=== PATIENT | male | born 1950 | race Caucasian/White ===

== ENCOUNTER 2016-11-04 20:30 | Outpatient (CLI) | payer MEDICARE, OTHER ==
[~2016-11-04 20:30] MED LIST: AMLO5TAB2 PO; BNZ20T PO; CYCL10TA9 PO; HYDR-3583 PO; IBP800T PO; MAG355OR55 PO; METO100T5 PO; OXYC-465 PO; SULF1TAB38 PO
== END 2016-11-05 06:45 | disposition home or self-care (01) ==
LOC: SLEEP 20:30
PROVIDERS: ATTEND Nurse Practitioner
DX: G47.10 Hypersomnia, unspecified (principal); R06.81 Apnea, not elsewhere classified; R06.83 Snoring; I10 Essential (primary) hypertension
CPT/HCPCS: 95810

== ENCOUNTER 2018-03-27 05:41 | Outpatient (CLI) | payer MEDICARE, OTHER ==
[~2018-03-27] VITALS: Ht 185.4 cm; Wt 127.0 kg
[2018-03-27] MEDS ORDERED: AMLO10TA6 PO (14:49)
[2018-03-27] MEDS ORDERED: METO-395 PO (14:49)
[2018-03-27] MEDS ORDERED: BENA20TA7 PO (14:49)
[2018-03-27] MEDS ORDERED: HYDR12.56 PO (14:49)
== END 2018-03-27 14:50 | disposition home or self-care (01) ==
LOC: PREOP 05:41
PROVIDERS: ATTEND Surgery
DX: Z01.818 Encounter for other preprocedural examination (principal)

== ENCOUNTER 2018-04-03 07:42 | Day surgery (SDC) | payer MEDICARE, OTHER ==
[~2018-04-03] VITALS: Ht 185.4 cm; Wt 127.0 kg
[~2018-04-03 07:42] MED LIST changes: +AMLO10TA6 PO; +BENA20TA7 PO; +HYDR12.56 PO; +METO-395 PO
[2018-04-03 08:00] VITALS: BP 142/71
[2018-04-03] MEDS ORDERED: LACTATED RINGERS 1,000 ML IV PRN (08:00)
[2018-04-03] MEDS ORDERED: ceFAZolin 2 GM IV Premixed 50 ML IV ONE (08:00)
[2018-04-03] MEDS ORDERED: LACTATED RINGERS 1,000 ML IV ONE (08:09)
--- OUTSIDE RECORDS SUMMARY | 2018-04-03 08:38 | XMS REPORT | Continuity of Care Document ---
Author Author [facility] Organization [facility] Address Unknown Phone Unavailable Allergies Active Description Code Type Severity Reaction Onset Reported/Identified Relationship to Patient Clinical Status Yes No Known Drug Allergies [id number] Drug Allergy Unknown N/A 05/31/2010 Medications There is no data. Problems Date Dx Coded Attending Type Code Diagnosis Diagnosed By 11/28/2012 TRAVON BARNES DO Ot 721.0 CERVICAL SPONDYLOSIS 11/28/2012 TRAVON BARNES DO Ot 722.52 LUMB/LUMBOSAC DISC DEGEN 12/27/2012 JUAN BAKER MD Ot 724.2 LUMBAGO 12/27/2012 JUAN BAKER MD Ot V57.1 PHYSICAL THERAPY NEC 12/13/2013 JUAN BAKER MD Ot 278.00 OBESITY, NOS 12/13/2013 JUAN BAKER MD Ot 721.3 LUMBOSACRAL SPONDYLOSIS 12/13/2013 JUAN BAKER MD Ot 722.52 LUMB/LUMBOSAC DISC DEGEN 12/13/2013 JUAN BAKER MD Ot V58.69 OTH MED,LT,CURRENT USE 12/13/2013 JUAN BAKER MD Ot V85.36 BODY MASS INDEX 36.0-36.9, ADULT 12/25/2013 JUAN BAKER MD Ot 724.2 LUMBAGO 12/25/2013 JUAN BAKER MD Ot V57.1 PHYSICAL THERAPY NEC 01/18/2016 Ot 722.10 LUMBAR DISC DISPLACEMENT 01/18/2016 Ot 722.52 LUMB/ LUMBOSAC DISC DEGEN 01/18/2016 JUAN BAKER MD Ot 715.36 LOC OSTEOARTH NOS-L/LEG 01/18/2016 JUAN BAKER MD Ot 719.46 JOINT PAIN-L/LEG 01/18/2016 JUAN BAKER MD Ot 278.00 OBESITY, NOS 01/18/2016 JUAN BAKER MD Ot 721.3 LUMBOSACRAL SPONDYLOSIS 01/18/2016 JUAN BAKER MD, Ot 722.52 LUMB/LUMBOSAC DISC DEGEN 01/18/2016 JUAN BAKER MD, Ot V58.69 OTH MED,LT,CURRENT USE 01/18/2016 JUAN BAKER MD Ot V85.36 BODY MASS INDEX 36.0-36.9, ADULT 01/18/2016 JUAN BAKER MD Ot M47.816 SPONDYLOSIS W/O MYELOPATHY OR RADICULOPA 01/18/2016 JUAN BAKER MD, Ot M51.16 INTERVERTEBRAL DISC DISORDERS W RADICULO 01/18/2016 JUAN BAKER MD Ot Z79.899 OTHER RN MOBILE (CURRENT) DRUG THERAPY 01/29/2016 JUAN BAKER MD, Ot M47.816 SPONDYLOSIS W/O MYELOPATHY OR RADICULOPA 01/29/2016 JUAN BAKER MD, Ot M51.16 INTERVERTEBRAL DISC DISORDERS W RADICULO 01/29/2016 JUAN BAKER MD Ot Z79.899 OTHER SENIOR LIVING (CURRENT) DRUG THERAPY 10/12/2016 JOY YUEN CLAIMS AUDITOR Ot I10 ESSENTIAL (PRIMARY) HYPERTENSION 10/12/2016 JOY YUEN CLAIMS AUDITOR Ot I10 ESSENTIAL (PRIMARY) HYPERTENSION 11/02/2016 JOY YUEN APRN Ot G47.19 OTHER HYPERSOMNIA 11/02/2016 Ot 722.10 LUMBAR DISC DISPLACEMENT 11/02/2016 Ot 722.52 LUMB/ LUMBOSAC DISC DEGEN 11/02/2016 JUAN BAKER MD Ot 715.36 LOC OSTEOARTH NOS-L/LEG 11/02/2016 JUAN BAKER MD Ot 719.46 JOINT PAIN-L/LEG 11/02/2016 JUAN BAKER MD Ot 278.00 OBESITY, NOS 11/02/2016 JUAN BAKER MD Ot 721.3 LUMBOSACRAL SPONDYLOSIS 11/02/2016 JUAN BAKER MD Ot 722.52 LUMB/LUMBOSAC DISC DEGEN 11/02/2016 JUAN BAKER MD, Ot V58.69 OTH MED,LT,CURRENT USE 11/02/2016 JUAN BAKER MD Ot V85.36 BODY MASS INDEX 36.0-36.9, ADULT 11/02/2016 JOY YUEN CLAIMS AUDITOR Ot G47.19 OTHER HYPERSOMNIA 11/04/2016 JOY YUEN APRN Ot G47.19 OTHER HYPERSOMNIA 11/04/2016 Ot 722.10 LUMBAR DISC DISPLACEMENT 11/04/2016 Ot 722.52 LUMB/ LUMBOSAC DISC DEGEN 11/04/2016 JUAN BAKER MD Ot 715.36 LOC OSTEOARTH NOS-L/LEG 11/04/2016 JUAN BAKER MD Ot 719.46 JOINT PAIN-L/LEG 11/04/2016 JUAN BAKER MD Ot 278.00 OBESITY, NOS 11/04/2016 JUAN BAKER MD Ot 721.3 LUMBOSACRAL SPONDYLOSIS 11/04/2016 JUAN BAKER MD Ot 722.52 LUMB/LUMBOSAC DISC DEGEN 11/04/2016 JUAN BAKER MD Ot V58.69 OTH MED,LT,CURRENT USE 11/04/2016 JUAN BAKER MD Ot V85.36 BODY MASS INDEX 36.0-36.9, ADULT 11/04/2016 JOY YUEN APRN Ot G47.19 OTHER HYPERSOMNIA 11/05/2016 JOY YUEN APRN Ot G47.10 HYPERSOMNIA, UNSPECIFIED 11/05/2016 JOY YUEN APRN Ot I10 ESSENTIAL (PRIMARY) HYPERTENSION 11/05/2016 JOY YUEN APRN Ot R06.81 APNEA, NOT ELSEWHERE CLASSIFIED 11/05/2016 JOY YUEN APRN Ot R06.83 SNORING 03/27/2018 CHARLES JULIA REAL Ot Z01.818 ENCOUNTER FOR OTHER PREPROCEDURAL EXAMIN Procedures There is no data. Results There is no data. Encounters ACCT No. Visit Date/Time Discharge Status Pt. Type Provider Facility Loc./Unit Complaint [id number] 03/27/2018 05:41:00 03/27/2018 14:50:00 DIS Outpatient JULIA CHARLES DO [facility] PREOP COLONOSCOPY [id number] 11/04/2016 20:30:00 11/05/2016 06:45:00 DIS Outpatient JOY YUEN APRN [facility] SLEEP SNORING,HTN,CHOKING /GASPING DURING SLEEP [id number] 01/18/2016 12:33:00 01/18/2016 13:42:00 DIS Outpatient JUAN BAKER MD [facility] CARD M51.16 [id number] 12/25/2013 13:16:00 12/25/2013 23:59:59 CLS Outpatient JUAN BAKER MD [facility] REHAB LUMBAGO [id number] 12/13/2013 08:21:00 12/13/2013 09:29:00 DIS Outpatient JUAN BAKER MD [facility] CARD DDD [id number] 11/08/2013 09:07:00 11/08/2013 23:59:59 CLS Outpatient JUAN BAKER MD [facility] CARD DDD LUMBAR [id number] 10/02/2013 12:16:00 10/02/2013 23:59:59 CLS Outpatient JUAN BAKER MD [facility] RAD LT KNEE PAIN [id number] 12/27/2012 08:10:00 12/27/2012 09:22:00 DIS Outpatient JUAN BAKER MD [facility] REHAB LUMBAGO [id number] 11/26/2012 15:50:00 11/28/2012 17:01:00 DIS Outpatient [facility] [id number] 04/03/2018 07:42:00 ACT Outpatient JULIA CHARLES DO [facility] ENDO SCREENING/FAMILY HX COLON CANCER [id number] 11/22/2011 12:19:00 Document Registration
[2018-04-03] MEDS ORDERED: proPOfol 200 MG/20 ML (DIPRIVAN) VIAL IV ONE ×2 (08:58)
[2018-04-03] MEDS ORDERED: MIDAZOLAM 2 MG/2 ML (VERSED) VIAL ONE (08:58)
--- NOTE | 2018-04-03 09:00 | Progress Note-Pre Operative ---
Pre-Operative Progress Note H&P Reviewed The H&P was reviewed, patient examined and no changes noted. Date Seen by Provider: Apr 03, 2018 Time Seen by Provider: 08:58 Date H&P Reviewed: Apr 03, 2018 Time H&P Reviewed: 09:00 Pre-Operative Diagnosis: Family history colon cancer JULIA CHARLES DO Apr 03, 2018 09:00
--- NOTE | 2018-04-03 09:38 | Progress Note-Post Operative ---
Post-Operative Progess Note Surgeon (s)/Coke Loader (s) Surgeon JULIA CHARLES DO Coke Loader: na Pre-Operative Diagnosis Family history colon cancer Post-Operative Diagnosis sigmoid colon polyps x 2 Procedure & Operative Findings Date of Procedure 04/03/18 Procedure Performed/Findings colonoscopy c snare polypectomy x 2 Anesthesia Type per track laying equipment operator Estimated Blood Loss Estimated blood loss (mL): min Specimens/Packing Specimens Removed sigmoid colon polyp x2 JULIA CHARLES DO Apr 03, 2018 09:38
--- NOTE | 2018-04-03 09:41 | Discharge Inst-Simple/Standard ---
Discharge Inst-Standard Discharge Medications New, Converted or Re-Newed RX: RX on Chart Patient Instructions/Follow Up Plan of Care/Instructions/FU: 2 weeks Stephani Activity as Tolerated: Yes Discharge Diet: Regular Diet JULIA CHARLES DO Apr 03, 2018 09:41
[2018-04-03 09:45] VITALS: BP 128/69
--- NOTE | 2018-04-03 10:12 | Anesthesia-General Post-Op ---
MAC Patient Condition Mental Status/LOC: Same as Preop Cardiovascular: Satisfactory Nausea/Vomiting: Absent Respiratory: Satisfactory Pain: Controlled Complications: Absent Post Op Complications Complications None Follow Up Care/Instructions Patient Instructions None needed. Anesthesiology Discharge Order Discharge Order Patient is doing well, no complaints, stable vital signs, no apparent adverse anesthesia problems. No complications reported per nursing. JI GAMBLE CRNA Apr 03, 2018 10:12
[2018-04-03 10:15] VITALS: BP 130/68
[2018-04-03 10:20] VITALS: BP 130/68
--- NOTE | 2018-04-03 12:06 | OPERATIVE REPORT ---
DATE OF SERVICE: 04/03/2018 PREOPERATIVE DIAGNOSIS: Family history of colon cancer. POSTOPERATIVE DIAGNOSIS: Sigmoid colon polyps. PROCEDURES: Colonoscopy with snare polypectomy x2. SURGEON: Julia Styles DO ANESTHESIA: Per REPAIRER CYLINDER HEADS. ESTIMATED BLOOD LOSS: None. COMPLICATIONS: None. INDICATIONS: The patient is a 67-year-old male needing screening colonoscopy. He understands the risks and benefits and wished to proceed with procedure. Consent was signed in the chart. PROCEDURE IN DETAIL: The patient was taken to the endoscopy suite, placed in left lateral recumbent position. Timeout was performed. Digital rectal exam was performed. There were no palpable polyps, masses, or ulcerations. Scope was inserted in the rectum and advanced all the way to the cecum with minimal difficulty. Prep was adequate. Scope was then slowly retracted back. There were no polyps, masses or ulcerations within the cecum, ascending, transverse and descending colon. Once in the sigmoid colon, there were 2 small polyps, which snare polypectomy was performed on both. The polyps were suctioned for pathology and sent. Scope was then continuously retracted back until in the rectum where it was also retroflexed noting no other pathology. Scope was returned to its normal position, slowly withdrawn until completely removed. The patient tolerated the procedure well without complications. He was taken to recovery room in stable condition. RECOMMENDATIONS: The patient will need repeat colonoscopy in 5 years. If he has any problems prior to that, he should be reevaluated at that time. The patient will follow up in the office in 2 weeks to discuss pathology results. Job ID: [id number] DocumentID: [id number] Dictated Date: 04/03/2018 09:43:31 Social Sciences Research Scientist Date: 04/03/2018 12:05:32 Dictated By: JULIA STYLES DO
== END 2018-04-03 10:20 | disposition home or self-care (01) ==
LOC: ENDO 07:42
PROVIDERS: ATTEND Surgery
DX: Z12.11 Encounter for screening for malignant neoplasm of colon (principal); D12.5 Benign neoplasm of sigmoid colon; I10 Essential (primary) hypertension; E66.9 Obesity, unspecified; Z68.36 Body mass index [BMI] 36.0-36.9, adult; Z80.0 Family history of malignant neoplasm of digestive organs; Z79.899 Other long term (current) drug therapy

== ENCOUNTER → 2020-05-01 | Outpatient (CLI) | payer MEDICARE, OTHER ==
[~2020-05-01] MED LIST changes: +AMLO-251 PO; -AMLO10TA6 PO; -METO-395 PO; +MTP100TCR PO
--- NOTE | 2020-05-01 12:16 | Diagnostic Imaging Report ---
CLINICAL INDICATION: Patient with pain to the left hip which radiates down left leg. No acute injury to back. EXAM: MRI of the lumbar spine performed without IV contrast. Sagittal T2, sagittal T1, sagittal stir, axial T1, and axial T2. COMPARISON: MRI of the lumbar spine without contrast dated 11/22/2011. FINDINGS: There is no acute lumbar spine fracture or dislocation. There is Modic type I degenerative signal changes involving the L1-L2 and L5-S1 levels. There is Modic type II degenerative signal changes anteriorly at the L3-L4 level and significantly seen at the L4-L5 levels. There is multilevel moderately hypertrophic spurs throughout the lumbar spine which has progressed. There is no significant paraspinal soft tissue abnormality. The visualized portions of the distal thoracic spinal cord, conus medullaris, and cauda equina nerve roots are unremarkable. The conus medullaris tip is seen at the mid L1 vertebral body level. T12-L1: There is no significant central spinal canal or neural foramen narrowing. L1-L2: There is development of a diffuse disc bulge and mild bilateral facet arthropathy which has progressed. There is no significant central canal narrowing. There is no significant right neural foramen narrowing. There is minimal left neural foramen narrowing which has minimally progressed. L2-L3: There is progression of moderate bilateral facet arthropathy/hypertrophy. There is no significant disc bulge. There is no significant central spinal canal or neural foramen narrowing. L3-L4: Again seen diffuse disc bulge with hypertrophic disc spurs in the right and left foraminal regions. There is moderate bilateral facet arthropathy/hypertrophy and prominent posterior epidural fat. There is qetg-ji-rvzhklzf central canal stenosis which has progressed. There is moderate bilateral neural foramen narrowing which is stable. L4-L5: There is progression of Modic type II degenerative signal changes at this level. Again seen diffuse disc bulge with progression of now severe loss of disc space height. There is severe bilateral facet arthropathy which has not significantly progressed. Stable prominence of the posterior epidural fat. There is interval resolution of previously seen left subarticular caudal disk extrusion/herniation. There is severe central canal stenosis which has minimally improved compared to the prior study. There is fstvmqdu-bw-jrrrul bilateral neural foramen narrowing which is stable. L5-S1: There is a diffuse disc bulge with disc herniation again seen extending into the left foraminal region. There is stable moderate left neural foramen narrowing. There is no significant right neural foramen narrowing. There is concern for encroachment upon the non-exited left S1 nerve root which has progressed compared to prior study due to the left subarticular disc herniation. There is moderate right facet arthropathy and severe left facet arthropathy. IMPRESSION: 1: There is severe multilevel lumbar spine degenerative disc disease which is described in detail above. 2: There is interval resolution of the previously seen L4-L5 left subarticular caudal disc migration. 3: There is progression of disc disease at other levels, as described above. Dictated by: Dictated on workstation # [id number]
== END ==
LOC: RAD 10:28
PROVIDERS: ATTEND Family Medicine
DX: M47.816 Spondylosis without myelopathy or radiculopathy, lumbar region (principal); M47.817 Spondylosis without myelopathy or radiculopathy, lumbosacral region; M51.26 Other intervertebral disc displacement, lumbar region; M51.27 Other intervertebral disc displacement, lumbosacral region; M48.061 Spinal stenosis, lumbar region without neurogenic claudication; M48.07 Spinal stenosis, lumbosacral region
CPT/HCPCS: 72148

== ENCOUNTER → 2020-05-20 | Outpatient (CLI) | payer MEDICARE, OTHER ==
--- NOTE | 2020-05-20 11:58 | Diagnostic Imaging Report ---
INDICATION: Neck pain, particularly on the left. COMPARISON: None available. TECHNIQUE: Four radiographs of the cervical spine dated May 20, 2020. FINDINGS: Alignment of the cervical spine is well maintained. Vertebral body heights are well maintained. Mild multilevel disc space height loss is noted throughout the cervical spine, particularly at C5/C6 without severe disc space height loss. Multilevel anterior osteophyte formation, particularly at C5/C6. Scattered facet joint degenerative changes and uncovertebral joint hypertrophy. This appears most prominent on the left at C3/C4. The lateral masses are well seated. Visualized portions of the dens are unremarkable, though the tip of the dens is obscured by overlying teeth and osseous structures. Prevertebral soft tissues are unremarkable. No acute fracture. IMPRESSION: No acute osseous abnormality with moderate multilevel degenerative changes, greatest at C5/C6 and on the left at C3/C4. Dictated by: Dictated on workstation # [id number]
== END ==
LOC: RAD 09:54
PROVIDERS: ATTEND Family Medicine
DX: M47.812 Spondylosis without myelopathy or radiculopathy, cervical region (principal)
CPT/HCPCS: 72040

== ENCOUNTER 2023-03-08 05:43 | Outpatient (CLI) | payer MEDICARE, OTHER ==
[~2023-03-08] VITALS: Ht 185 cm; Wt 129.0 kg
[~2023-03-08 05:43] MED LIST changes: +BENA-3 PO; -BENA20TA7 PO
[2023-03-10] MEDS ORDERED: CARV25TA PO ×2 (09:39)
[2023-03-10] MEDS ORDERED: HYDR25TA4 PO ×2 (09:39)
== END 2023-03-10 09:59 | disposition home or self-care (01) ==
LOC: PREOP 05:43
PROVIDERS: ATTEND Surgery
DX: Z01.818 Encounter for other preprocedural examination (principal)

== ENCOUNTER 2023-03-14 06:53 | Day surgery (SDC) | payer MEDICARE, OTHER ==
[~2023-03-14] VITALS: Ht 185.4 cm; Wt 129.0 kg
[~2023-03-14 06:53] MED LIST changes: +CARV25TA PO; +HYDR25TA4 PO
[2023-03-14] MEDS ORDERED: LACTATED RINGERS 1,000 ML 1,000 ML IV STA (07:11)
[2023-03-14 07:27] VITALS: BP 138/74
--- NOTE | 2023-03-14 08:13 | Progress Note-Pre Operative ---
Pre-Operative Progress Note Date H&P Reviewed: Mar 14, 2023 Time H&P Reviewed: 08:06 History & Physical: H&P Reviewed, Patient Examed, No changes noted Pre-Operative Diagnosis: hx polyps JULIA CHARLES DO Mar 14, 2023 08:13
[2023-03-14 08:35] VITALS: BP 113/63
--- NOTE | 2023-03-14 08:35 | Progress Note-Post Operative ---
Post-Operative Progess Note Surgeon (s)/Ironer Or Presser (s) Surgeon JULIA CHARLES DO Ironer Or Presser: n/a Pre-Operative Diagnosis hx polyps Post-Operative Diagnosis sigmoid polyp, diverticulosis Procedure & Operative Findings Date of Procedure 03/14/23 Procedure Performed/Findings colonoscopy w/ hot biopsy polypectomy x1 Anesthesia Type per ROLL CONTOUR GRINDER Estimated Blood Loss Estimated blood loss (mL): none Specimens/Packing Specimens Removed sigmoid polyp JULIA CHARLES DO Mar 14, 2023 08:35
--- NOTE | 2023-03-14 08:35 | Anesthesia-General Post-Op ---
MAC Patient Condition Mental Status/LOC: Same as Preop Cardiovascular: Satisfactory Nausea/Vomiting: Absent Respiratory: Satisfactory Pain: Controlled Complications: Absent Post Op Complications Complications None Follow Up Care/Instructions Patient Instructions None needed. Anesthesiology Discharge Order Discharge Order Patient is doing well, no complaints, stable vital signs, no apparent adverse anesthesia problems. No complications reported per nursing. MAXINE HERNANDEZ CRNA Mar 14, 2023 08:34
--- NOTE | 2023-03-14 08:36 | Discharge Inst-Simple/Standard ---
Discharge Inst-Standard Patient Instructions/Follow Up Plan of Care/Instructions/FU: 2 weeks Stephani Activity as Tolerated: Yes Discharge Diet: Regular Diet (high fiber ) JULIA CHARLES DO Mar 14, 2023 08:36
[2023-03-14 09:06] VITALS: BP 113/63
--- NOTE | 2023-03-14 14:24 | OPERATIVE REPORT ---
DATE OF SERVICE: 03/14/2023 PREOPERATIVE DIAGNOSIS: History of polyps. POSTOPERATIVE DIAGNOSES: Sigmoid colon polyp, diverticulosis. PROCEDURE: Colonoscopy with hot biopsy polypectomy x1. SURGEON: Julia Styles DO ANESTHESIA: Per PHYSICIAN EXTENDER. ESTIMATED BLOOD LOSS: None. COMPLICATIONS: None. INDICATIONS: The patient is a 72-year-old male with need for screening colonoscopy per history of polyps. He understands risks and benefits of procedure and wished to proceed. Consent was signed in chart. DESCRIPTION OF PROCEDURE: The patient was taken to the endoscopy suite, placed in left lateral recumbent position. Timeout was performed. Digital rectal exam was performed. No palpable polyps, masses or ulcerations. Scope was inserted in the rectum, all the way to the cecum with minimal difficulty. Prep was adequate. Scope was slowly retracted back. No polyps, masses or ulcerations in the cecum, ascending, transverse, descending colon. Polyp in the sigmoid colon, which hot biopsy polypectomy was performed. Pandiverticulosis present. Once in the rectum, scope was retroflexed noting no other pathology. Scope was returned to its normal position, slowly withdrawn until completely removed. The patient tolerated the procedure well without complications, taken to recovery room in stable condition. RECOMMENDATIONS: Repeat colonoscopy in 5 years if benefits outweigh the risk. We would recommend high fiber diet due to the diverticulitis. He will follow up on pathology in 2 weeks. Job ID: [id number] DocumentID: [id number] Dictated Date: 03/14/2023 08:35:22 Carton Packaging Machine Operator Date: 03/14/2023 14:22:00 Dictated By: JULIA STYLES DO
== END 2023-03-14 09:06 | disposition home or self-care (01) ==
LOC: ENDO 06:53
PROVIDERS: ATTEND Surgery
DX: Z12.11 Encounter for screening for malignant neoplasm of colon (principal); D12.5 Benign neoplasm of sigmoid colon; K57.30 Diverticulosis of large intestine without perforation or abscess without bleeding; E66.01 Morbid (severe) obesity due to excess calories; Z68.37 Body mass index [BMI] 37.0-37.9, adult; G47.33 Obstructive sleep apnea (adult) (pediatric)